=== PATIENT | male | born 1955 | race African-American/Black ===

== ENCOUNTER → 2021-07-27 | Outpatient (CLI) | payer MEDICARE ==
--- NOTE | 2021-07-27 10:20 | RAD ---
EXAM: Abdomen sonogram. HISTORY: Aneurysm screening. Smoking history. Hypertension. TECHNIQUE: Sonographic imaging of the abdominal aorta was performed. COMPARISON: None. FINDINGS: The proximal abdominal aorta measures 2.2 cm in caliber. The mid abdominal aorta measures 4 .0 cm in caliber. The distal abdominal aorta measures 3.8 cm in caliber. The common iliac arteries ar e normal in caliber. There is an asymmetric increased peak systolic velocity within the right common femoral artery, measuring 209 cm/s. IMPRESSION: 1. Mid and distal abdominal aortic aneurysm measuring 4.0 cm in maximum caliber. 2. Elevated peak systolic velocity within the right common cardiac artery likely due to atheroscleros is and associated stenosis. Electronically signed by: Martha Albert MD (07/27/2021 10:18 AM) [id number]
== END ==
LOC: US 09:24
PROVIDERS: ATTEND Internal Medicine
DX: I71.4 Abdominal aortic aneurysm, without rupture (principal)
CPT/HCPCS: 76770